=== PATIENT | female | born 1995 | race Two or more races ===

== ENCOUNTER 2017-10-27 23:30 | Emergency (ER) | payer SELFPAY ==
[~2017-10-27] VITALS: Ht 167.6 cm; Wt 63.5 kg
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
--- NOTE | 2017-10-27 23:45 | NUR ---
PT REFUSED UA. PT STATES "I WILL SIGN A PAPER THAT I AM NOT ."
--- NOTE | 2017-10-27 23:59 | NUR ---
[employer] OFF[employer]ERS BEDSIDE WITH PT.
[2017-10-28] MEDS ORDERED: IBUPROFEN 600 MG TABLET PO ONE ×2 (00:11→00:30)
--- NOTE | 2017-10-28 00:31 | NUR ---
Patient is resting comfortably in bed with eyes open. VSS
--- NOTE | 2017-10-28 02:09 | NUR ---
Patient discharged to home in stable condition. Written and verbal after care instructions given. Patient verbalizes understanding of instruction. VSS upon discharge. pt ambulated with steady gait out of er. Pt states her "friends are giving her a ride back home."
[2017-10-28 02:12] VITALS: BP 127/75
== END 2017-10-28 02:16 | disposition home or self-care (01) ==
LOC: ER 23:31
DX: S40.012A Contusion of left shoulder, initial encounter (principal); V49.59XA Passenger injured in collision with other motor vehicles in traffic accident, initial encounter; Y93.89 Activity, other specified; Y92.413 State road as the place of occurrence of the external cause; Y99.8 Other external cause status
CPT/HCPCS: 73030; 99284; A4606; Z7610